=== PATIENT | male | born 2000 | race Caucasian/White ===

== ENCOUNTER 2024-04-05 10:37 | Emergency (ER) | payer OTHER, SELFPAY ==
[2024-04-05 10:53] VITALS: BP 144/103
--- NOTE | 2024-04-05 10:54 | ED.SKININJ ---
HPI-Injury
<Syed Barboza PA-C - Last Filed: 04/05/24 10:55>
General
Chief Complaint: Bite
Time Seen by Provider: 04/05/24 12:44
<Eliu Mak DO - Last Filed: 04/05/24 13:15>
General
Source: patient and family (mother reports no medical problems)
Exam Limitations: none
Nursing documentation reviewed up to this point in time: agreed with
History of Present Illness-Injury
Is this injury a work related problem?: Yes
Is pt an associate of [facility]?: No
Initial Injury comments:
Agree with HPI by Jayesh Barboza, patient reports his tetanus has been in the past 5 years, and dog vaccinations are up-to-date per dog chemical sprayer.
ED Provider Triage
<Syed Barboza PA-C - Last Filed: 04/05/24 10:55>
-
Patient seen by provider in Triage?: Seen in Triage
23-year-old male with dog bite to left hand he sustained today. It was a pitbull that lived with the customer. He notes swelling and moderate pain to the left wrist and hand. He notes decreased range of motion of the left wrist. Dogs vaccines
are allegedly up-to-date. Patient had a tetanus vaccine within 2 years.
Patient has a swollen dorsal left wrist with decreased motion of the left wrist. X-rays ordered of the left hand. There are small puncture wounds noted to the dorsal aspect of the left proximal hand and wrist
Patient seen by healthcare provider triage but warrants further assessment
Past History
<Eliu Mak DO - Last Filed: 04/05/24 13:15>
Past History
ED Past Medical History: None
ED Past Surgical History: Orthopedic (Left hand surgery)
Social History
Tobacco: Smoker
Alcohol: None
Drug: None
Living: with family
Employment: Employed
Review of Systems
<Eliu Mak DO - Last Filed: 04/05/24 13:15>
Review of Systems
Allergies reviewed?: Yes
All Other Systems: Not applicable
Constitutional: Reports no symptoms
EENT: Reports no symptoms
Respiratory: Reports no symptoms
Cardiac: Reports no symptoms
ABD/GI: Reports no symptoms
: Reports no symptoms
Musculoskeletal: Reports muscle pain
Skin: Reports other (Puncture wounds)
Neurological: Reports numbness
Endocrine: Reports no symptoms
Hematologic/Lymphatic: Reports no symptoms
Psychiatric: Reports no symptoms
Skin Exam
<Eliu Mak DO - Last Filed: 04/05/24 13:15>
Puncture Wound
Left Hand:
Type of puncture wound: other (Dog bite)
Age of puncture wound: within last several hours
Any active bleeding?: no active bleeding
Distal skin color and temperature: normal-warm & good color
Normal distal neurovascular exam: Yes
Bite
Left Hand:
Type: animal
Skin has: abrasions but intact
Laceration length in cm: 1
Surrounding area around bite has: no evidence of erythema
Distal skin color and temperature: normal-warm & good color
Normal distal neurovascular exam: Yes
Phy Exam
<Eliu Mak DO - Last Filed: 04/05/24 13:15>
Physical Exam
Physical Exam:
No acute distress, afebrile
Course
<Syed Barboza PA-C - Last Filed: 04/05/24 10:55>
Orders/Labs/Results
Orders:
Orders
04/05/24 10:52
CR Hand - Left Min 3 Views Urgent
Comment:
Reason For Exam: dog bite
Vital Signs
Initial and Last Documented VS:
Initial Vital Signs
Temp Pulse Resp BP Pulse Ox
98.4 F 79 18 144/103 97
04/05/24 10:53 04/05/24 10:53 04/05/24 10:53 04/05/24 10:53 04/05/24 10:53
Last Documented Vital Signs
Temp Pulse Resp BP Pulse Ox
98.4 F 79 18 144/103 97
04/05/24 10:53 04/05/24 10:53 04/05/24 10:53 04/05/24 10:53 04/05/24 10:53
<Eliu Mak, DO - Last Filed: 04/05/24 13:15>
Orders/Labs/Results
Orders:
Orders
04/05/24 10:52
CR Hand - Left Min 3 Views Urgent
Comment:
Reason For Exam: dog bite
Vital Signs
Initial and Last Documented VS:
Initial Vital Signs
Temp Pulse Resp BP Pulse Ox
98.4 F 79 18 144/103 97
04/05/24 10:53 04/05/24 10:53 04/05/24 10:53 04/05/24 10:53 04/05/24 10:53
Last Documented Vital Signs
Temp Pulse Resp BP Pulse Ox
98.4 F 79 18 144/103 97
04/05/24 10:53 04/05/24 10:53 04/05/24 10:53 04/05/24 10:53 04/05/24 10:53
<Eliu Mak, DO - Last Filed: 04/05/24 13:15>
MDM/Problems Addressed
Differential Diagnosis Includes:
Rabid animal, foreign body, dog bite
MDM/Problems Addressed:
23-year-old male with dog bite to left hand no wound repair necessary. Immunizations up-to-date inpatient and dog. Will treat with Augmentin. Patient has some numbness but range of motion in fingers. Stable for discharge. Orthopedic follow-up
as necessary.
<Eliu Mak DO - Last Filed: 04/05/24 13:15>
*Radiology
Radiology exam reviewed: radiology read reviewed (Left hand x-ray no acute findings)
*Pulse Oximetry
Patient hypoxic: no
*Critical Care Note
Total Time (30-74mins, 75-104mins- exclusive of procedures): Not Applicable
<Eliu Mak DO - Last Filed: 04/05/24 13:15>
Patient Management
Social determinants of health affecting care: Living situation and Strong social support
Escalation/DeEscalation of care consider admission/obs:
Admit not indicated
ED Attending Note
<Syed Barboza PA-C - Last Filed: 04/05/24 10:55>
-
Portions of this chart may have been created with voice recognition software.� Occasional wrong word or��sound alike� substitutions may have occurred due to the inherent limitations of voice recognition software.
Discharge Plan
Departure
Patient Disposition: Home (Routine Discharge)
Date of Disposition: 04/05/24
Time of Disposition: 13:13
Patient with high blood pressure during this ER visit?: Yes
Condition: Good
Discharge Problem:
Dog bite of left hand
Instructions: Animal Bites (DC)
Prescriptions:
New
amoxicillin-pot clavulanate 875-125 mg tablet
1 tab PO BID Qty: 19 0RF
Referrals:
UNKNOWN - PT DOES,NOT KNOW [Family Provider] -
Interventions
Interventions:
*Risk Screen - Suicide Last Done: 04/05/24 10:53
*General Assessment Last Done: 04/05/24 10:53
*Neglect/Abuse Screening Last Done: 04/05/24 10:53
*ED COVID-19 Vaccine History Last Done: 04/05/24 12:31
ED-Skin Assessment Last Done: 04/05/24 12:30
Discharge Date and Time
Print Language: GHANAIAN
[2024-04-05] MEDS: AUGMENTIN 875 MG/125 MG 1 TABLET PO (13:40)
== END 2024-04-05 13:51 | disposition home or self-care (01) ==
LOC: EMR 10:37
PROVIDERS: EMERGENCY PHYSICIAN Emergency Medicine
DX: S61.432A Puncture wound without foreign body of left hand, initial encounter (principal); W54.0XXA Bitten by dog, initial encounter; F17.200 Nicotine dependence, unspecified, uncomplicated
CPT/HCPCS: 99283; 73130